=== PATIENT | female | born 1990 ===

== ENCOUNTER 2017-06-02 07:38 | Inpatient (IN) | payer BC ==
[~2017-06-02] VITALS: Ht 162.6 cm; Wt 74.5 kg
[2017-06-02] VITALS (7 sets, daily range): BP systolic 108–137; BP diastolic 67–84
[2017-06-02] MEDS ORDERED: ZOLOFT50 MG PO (08:20)
[2017-06-02] MEDS ORDERED: PNV 29-1 TABLE1 EACH PO (08:23)
[2017-06-02 09:01] LABS: BASOPHIL (%) 0.5 % (0-1); BASOPHIL COUNT 0.1 K/uL (0-0.1); EOSINOPHIL (%) 0.5 % (0-5); EOSINOPHIL COUNT 0.1 K/uL (0-0.3); HEMATOCRIT 44.7 % (36.0-46.0); HEMOGLOBIN 15.8 G/DL (11.9-15.5); IMMATURE GRANULOCYTE (%) 0.4 % (0.0-0.7); LYMPHOCYTE (%) 18.6 % (15-42); LYMPHOCYTE COUNT 2.9 K/uL (1.0-2.8); MCH 30.7 PG (29.0-34.0); MCHC 35.3 G/DL (30.0-36.0); MCV 86.8 FL (83-99); MONOCYTE (%) 7.3 % (3-12); MONOCYTE COUNT 1.1 K/uL (0-0.8); NEUTROPHIL (%) 72.7 % (45-76); NEUTROPHIL COUNT 11.2 K/uL (1.8-6.4); PLATELET COUNT 273 K/uL (156-360); RBC DIS.WIDTH-CV 12.1 % (11.8-14.6); RBC DIS.WIDTH-SD 38.5 % (39-53); RED BLOOD COUNT 5.15 M/uL (3.80-5.20); WHITE BLOOD COUNT 15.3 K/uL (4.1-10.2)
[2017-06-02 15:51] LABS: ANTI-HIV (AIDS STAT TEST) NONREACTIVE
[2017-06-03 07:36] LABS: BASOPHIL (%) 0.6 % (0-1); BASOPHIL COUNT 0.1 K/uL (0-0.1); EOSINOPHIL (%) 1.7 % (0-5); EOSINOPHIL COUNT 0.2 K/uL (0-0.3); HEMATOCRIT 38.9 % (36.0-46.0); IMMATURE GRANULOCYTE (%) 0.4 % (0.0-0.7); LYMPHOCYTE (%) 24.3 % (15-42); LYMPHOCYTE COUNT 2.6 K/uL (1.0-2.8); MCH 30.7 PG (29.0-34.0); MCHC 34.4 G/DL (30.0-36.0); MONOCYTE (%) 8.1 % (3-12); MONOCYTE COUNT 0.9 K/uL (0-0.8); NEUTROPHIL (%) 64.9 % (45-76); NEUTROPHIL COUNT 6.8 K/uL (1.8-6.4); PLATELET COUNT 211 K/uL (156-360); RBC DIS.WIDTH-CV 12.2 % (11.8-14.6); RBC DIS.WIDTH-SD 39.7 % (39-53); RED BLOOD COUNT 4.37 M/uL (3.80-5.20); WHITE BLOOD COUNT 10.5 K/uL (4.1-10.2)
[2017-06-03 07:48] LABS: HEMOGLOBIN 13.4 G/DL (11.9-15.5)
[2017-06-04 07:03] VITALS: BP 120/69
[2017-06-04 09:46] LABS: TREPONEMA ANTIBODY NEGATIVE (NEGATIVE)
[2017-06-04] MEDS ORDERED: IBUPROFEN800 MG PO (10:38)
[2017-06-04 10:58] LABS: HEPATITIS B SURFACE ANTIGEN Nonreactive
[2017-06-04 10:59] LABS: HIV-1/2 AB/AG COMBO Nonreactive
== END 2017-06-04 13:14 | disposition home or self-care (01) | DRG 775 ==
LOC: EME 07:38 → EDSTATUS 07:50 → LDRP-OP 07:55 → 2WEST 07:56
PROVIDERS: Advanced Practice Midwife
DX: O70.0 First degree perineal laceration during delivery (principal); O77.0 Labor and delivery complicated by meconium in amniotic fluid; O41.03X0 Oligohydramnios, third trimester, not applicable or unspecified; O99.344 Other mental disorders complicating childbirth; F32.9 Major depressive disorder, single episode, unspecified; F41.9 Anxiety disorder, unspecified; O99.354 Diseases of the nervous system complicating childbirth; G43.909 Migraine, unspecified, not intractable, without status migrainosus; O99.334 Smoking (tobacco) complicating childbirth; F17.200 Nicotine dependence, unspecified, uncomplicated; O99.214 Obesity complicating childbirth; E66.9 Obesity, unspecified; Z68.32 Body mass index [BMI] 32.0-32.9, adult; Z3A.39 39 weeks gestation of pregnancy; Z37.0 Single live birth
CPT/HCPCS: 83030; 85025; 86762; 86780; 86850; 86900; 86901; 87340; 87389; J2790; J7120